=== PATIENT | female | born 1960 | race Caucasian/White ===

== ENCOUNTER 2019-01-12 09:45 | Emergency (ER) | payer SELFPAY ==
--- NOTE | 2019-01-12 09:57 | PDOC ---
History of Present Illness - General Chief Complaint: Chest Pain Stated Complaint: CHEST PAIN Time Seen by Provider: 01/12/19 09:57 - History of Present Illness Initial Comments: 01/12/19 10:42 HPI 59 year old woman with no known past medical history and without a PCP who presents with central pressure like chest pain rated 7/10 associated with R arm numbness onset this AM after breakfast. She reports a similar pain that occurred yesterday morning associated with diaphoresis and dizziness that lasted until 1500 and self resolved. She reports never having an episode like this in the past. At bedside she reports current chest pain, but denies shortness of breath, nausea and dizziness. She has no family history of [place] and she does not smoke cigarettes PCP: None ROS GENERAL/CONSTITUTIONAL: No fever or chills. No weakness. HEAD, EYES, EARS, NOSE AND THROAT: No change in vision. No ear pain or discharge. No sore throat. CARDIOVASCULAR: see hpi RESPIRATORY: No cough, wheezing, or hemoptysis. GASTROINTESTINAL: No vomiting, diarrhea or constipation. GENITOURINARY: No dysuria, frequency, or change in urination. MUSCULOSKELETAL: No joint or muscle swelling or pain. No neck or back pain. SKIN: No rash NEUROLOGIC: No headache, vertigo, loss of consciousness, or change in strength/ sensation. PE GENERAL: Awake, alert, and fully oriented, in no acute distress, anxious appearing and tearful HEAD: No signs of trauma, normocephalic, atraumatic EYES: EOMI, sclera anicteric, conjunctiva clear ENT: oropharynx clear without exudates. Moist mucosa NECK: Normal ROM, supple LUNGS: No distress, speaks full sentences, clear to auscultation bilaterally HEART: Regular rate and rhythm, normal S1 and S2, no murmurs, rubs or gallops, peripheral pulses normal and equal bilaterally. ABDOMEN: Soft, nontender, normoactive bowel sounds. No guarding, no rebound. No masses EXTREMITIES : Normal inspection, Normal range of motion, no edema. No clubbing or cyanosis. NEUROLOGICAL: Cranial nerves II through XII grossly intact. Normal speech, no focal sensorimotor deficits SKIN: Warm, Dry, normal turgor, no rashes or lesions noted MDM 59 year old woman with no known past medical history and without a PCP who presents with central pressure like chest pain rated 7/10 associated with R arm numbness onset this AM after breakfast. DDX including but not limited to: ACS vs arrythmia consider anxiety attack W/U: - cbc, cmp, bnp, trop, ekg, cxr TX: - ASA ED Course: EKG: electronic reading as STEMI however inferior leads with II, III, aVF ST elevations less than 1 box Case discussed with Cardiology refer to attending note. Per cards, ekg does not meet stemi criteria Dosed ASA and morphine for pain. Patient refused morphine Further discussion with patient reveals personal and family stressors over the past 3-4 days. Repeat EKG EKG: normal sinus rhythm HR 54, no interval abnormalities, narrow QRS, T wave segments and morphology normal. ST segments < 1mm elevation in II, III, aVF. CXR: negative Labs wnl. Initial trop and 3 hr trop negative Patient stable for discharge with cardiology f/u patient expresses understanding and agrees to plan Nessa Dueñas PGY2 Emergency Medicine 01/15/19 07:33 Past History - Past Medical History Allergies/Adverse Reactions: Allergies Allergy/AdvReac Type Severity Reaction Status Date / Time No Known Allergies Allergy Verified 01/12/19 10:08 COPD: No - Suicide/Smoking/Psychosocial Hx Smoking History: Never smoked Hx Alcohol Use: No Drug/Substance Use Hx: No *Physical Exam - Vital Signs Last Vital Signs Temp Pulse Resp BP Pulse Ox 97.5 F L 60 18 110/70 96 01/12/19 09:50 01/12/19 09:50 01/12/19 09:50 01/12/19 09:50 01/12/19 09:50 ED Treatment Course - LABORATORY CBC & Chemistry Diagram: 01/12/19 10:00 01/12/19 10:00 *DC/Admit/Observation/Transfer Diagnosis at time of Disposition: Chest pain - Discharge Dispostion Disposition: HOME Condition at time of disposition: Stable Decision to Admit order: No - Referrals Referrals: Jeffrey Kaiser MD [Staff Physician] - [facility] [place] [facility] [Provider Group] - Patient Instructions Printed Discharge Instructions: DI for Atypical Chest Pain Additional Instructions: You were seen in the ED for complaints of chest pain. In the ED you were evaluated with labwork and imaging Your results were unremarkable There does not appear to be an acute need for immediate hospitalization. You are advised to follow up with your Primary Care Physician within 1 week. You were given a referral to [facility] and are advised to follow up within 1week. Return to the ED immediately if you experience worsening chest pain, sweating, nausea, shortness of breath or lightheadedness. - Post Discharge Activity
[2019-01-12 10:16] VITALS: BMI 20.3
[2019-01-12] MEDS ORDERED: morphine CARPU-JECT 4 MG/1 ML DISP.SYRIN IVPUSH ONE (10:21)
[2019-01-12] MEDS ORDERED: ASPIRIN 325 MG TABLET PO ONE (10:21)
[2019-01-12 10:27] LABS: EOS % 1.1 % (0-4.5); HEMATOCRIT 46.2 % (32.4-45.2); HEMOGLOBIN 15.4 GM/dL (10.7-15.3); LYMPH % 28.6 % (8-40); MCH 30.8 pg (25.7-33.7); MCHC 33.4 g/dl (32.0-36.0); MEAN CELL VOLUME 92.1 fl (80-96); MEAN PLT VOLUME 8.4 fl (7.5-11.1); MONO % 10.3 % (3.8-10.2); PLATELET COUNT 181 K/MM3 (134-434); RBC 5.02 M/mm3 (3.60-5.2); RDW 14.8 % (11.6-15.6); WHITE BLOOD COUNT 5.5 K/mm3 (4.0-10.0)
[2019-01-12] MEDS ORDERED: ASPIRIN 81 MG CHEWABLE TABLETS ONE (10:28)
[2019-01-12] MEDS ORDERED: morphine SULFATE 4 MG/ML VIAL ONE (10:29)
[2019-01-12 10:50] LABS: ALBUMIN 4.5 g/dl (3.4-5.0); BILIRUBIN,TOTAL 0.8 mg/dL (0.2-1); BLOOD UREA NITROGEN 22.1 mg/dL (7-18); CREATININE 0.8 mg/dL (0.55-1.3); POTASSIUM 4.1 mmol/L (3.5-5.1); TOT PROT 7.9 g/dl (6.4-8.2)
--- NOTE | 2019-01-12 11:24 | EKG ---
Test Reason : Blood Pressure : / mmHG Vent. Rate : 059 BPM Atrial Rate : 059 BPM P-R Int : 162 ms QRS Dur : 082 ms QT Int : 394 ms P-R-T Axes : 061 055 061 degrees QTc Int : 390 [address] ELEVATION CONSIDER INFERIOR INJURY OR ACUTE INFARCT ACUTE PR / STEMI ABNORMAL ECG NO PREVIOUS ECGS AVAILABLE Confirmed by Christiano Gardiner MD ([id number]) on 01/12/2019 11:24:11 AM Referred By: Confirmed By:Christiano Gardiner MD
[2019-01-12 12:19] LABS: INR 0.93 (0.83-1.09)
[2019-01-12 12:22] LABS: ACTIVATED PTT 31.5 SECONDS (25.2-36.5)
[2019-01-12 12:40] LABS: N-TERMINAL BNP 58.8 pg/ml (5-125)
--- NOTE | 2019-01-12 14:17 | PDOC ---
Documentation entered by Starr Meza SCRIBE, acting as scribe for Jordan Key MD. Jordan Key MD: This documentation has been prepared by the Susana ward Renju, SCRIBE, under my direction and personally reviewed by me in its entirety. I confirm that the documentation accurately reflects all work, treatment, procedures, and medical decision making performed by me. Attending Attestation - Resident Resident Name: Nessa Dueñas - ED Attending Attestation I have performed the following: I have examined & evaluated the patient, The case was reviewed & discussed with the resident, I agree w/resident's findings & plan, Exceptions are as noted - HPI HPI: 01/12/19 10:58 The patient is a 59 year old female with no known past medical history who presents to the emergency department for evaluation of chest pain described as a central pressure, ranked 7/10 in severity associated with right arm numbness which occurred after eating breakfast this morning. Patient notes an episode which occurred with diaphoresis and dizziness yesterday. Denies shortness of breath, dizziness, nausea, vomiting, and family history of [place]. ROS: A complete review of 10 out of 10 review of systems is taken and is negative apart from what is previously mentioned below and in the HPI. - Physicial Exam PE: 01/12/19 14:12 Vitals: Triage Vital signs reviewed General Appearance: no acute distress, well nourished well developed, Head: Atraumatic, Neck: Supple;No Nucal rigidity Chest Wall: Nontender Cardiac: Regular rate and rhythym, no murmurs, no rubs, no gallops, Lungs: Clear to auscultation bilateral, good air movement bilaterally, Abdomen: Soft, non distended, normal bowel sounds, non tender to palpation Extremities: Full range of motion to all extremities, no cyanosis, clubbing, or edema Skin: Warm and dry, no rashes or lesions, no rash, no petechiae Psych: normal mood, normal affect - Medical Decision Making 01/12/19 14:16 Does not meet criteria for ST elevation MN case faxed to Dr. Benavides interventional cardiology agrees that ST elevation [place] criteria not met Patient with no risk factors we'll check troponin First troponin negative. We'll check second troponin given the chest pain started just proximal reliable. Second troponin negative. Heart score 2 Patient provided with cardiology follow-up. Findings, need for follow-up and strict return instructions discussed patient. Heart Score/ECG Review - History History: Slightly suspicious - Electrocardiogram EKG: Normal - Age Age: 45-65 - Risk Factors Based on the list above the patient has:: 1-2 risk factors - Troponin Troponin: </= normal limit - Score Heart Score - Total: 2 - ECG Impressions Comment:: 01/12/19 14:[address] elevations or T-wave inversions some 1 mm J-point elevation in lead 2 No reciprocal changes Interpreted by me.
[2019-01-12 14:23] VITALS: BP 122/65; PULSE 74; TEMP 98.3
--- NOTE | 2019-01-13 11:25 | EKG ---
Test Reason : Blood Pressure : / mmHG Vent. Rate : 054 BPM Atrial Rate : 054 BPM P-R Int : 160 ms QRS Dur : 084 ms QT Int : 426 ms P-R-T Axes : 055 049 055 degrees QTc Int : 403 ms SINUS BRADYCARDIA OTHERWISE NORMAL ECG WHEN COMPARED WITH ECG OF 12-JAN-2019 09:55, NO SIGNIFICANT CHANGE WAS FOUND Confirmed by INGRID MATIAS MD ([id number]) on 01/13/2019 11:25:19 AM Referred By: Confirmed By:INGRID MATIAS MD
== END 2019-01-12 14:24 | disposition home or self-care (01) ==
LOC: JER 09:45
DX: R07.9 Chest pain, unspecified (principal)
CPT/HCPCS: 36415; 71045-TC-FY; 80053; 83880; 84484; 85025; 85610; 85730; 93005; 93010; 99285-25